=== PATIENT | male | born 1985 | race Caucasian/White ===

== ENCOUNTER 2016-11-21 00:29 | Emergency (ER) | payer OTHER ==
[~2016-11-21] VITALS: Ht 167.6 cm; Wt 82.0 kg
[2016-11-21 03:27] VITALS: BP 137/62
== END 2016-11-21 03:25 | disposition home or self-care (01) ==
LOC: ER 00:29
DX: R33.9 Retention of urine, unspecified (principal); R10.2 Pelvic and perineal pain; Z98.890 Other specified postprocedural states
CPT/HCPCS: 99283

== ENCOUNTER 2017-09-01 07:03 | Day surgery (SDC) | payer MEDICAID ==
[~2017-09-01] VITALS: Ht 167.6 cm; Wt 81.0 kg
[2017-09-01] MEDS ORDERED: BUPIVACAINE HCL 0.5% (5MG/ML) 50ML ONE (08:22)
[2017-09-01] MEDS ORDERED: SKIN ADHESIVE 0.7 GM EA TOP ONE (08:22)
[2017-09-01] MEDS ORDERED: MIDAZOLAM HCL 2 MG/2 ML VIAL ONE (09:14)
[2017-09-01] MEDS ORDERED: ROCURONIUM BROMIDE 10MG/ML VIAL 5ML IV ONE (09:14)
[2017-09-01] MEDS ORDERED: FENTANYL CITRATE/PF 50MCG/ML 2ML VIAL ONE ×2 (09:14→10:32)
[2017-09-01] MEDS ORDERED: PROPOFOL 200MG/20ML VIAL IV ONE (09:14)
[2017-09-01] MEDS ORDERED: CEFAZOLIN SODIUM 1000MG/VIAL ONE ×2 (09:17→10:24)
[2017-09-01] MEDS ORDERED: ONDANSETRON HCL 4MG/2ML VIAL ONE (09:18)
[2017-09-01] MEDS ORDERED: DEXAMETHASONE 4MG/ML 1ML VIAL ONE (09:18)
[2017-09-01] MEDS ORDERED: SODIUM CHLORIDE 0.9% 1,000 ML IV SCH (10:52)
[2017-09-01] MEDS ORDERED: FENTANYL CITRATE/PF 50MCG/ML 2ML VIAL IV PRN (11:00)
[2017-09-01] MEDS ORDERED: ATROPINE SULFATE 0.4MG/ML VIAL IV PRN (11:00)
[2017-09-01] MEDS ORDERED: ONDANSETRON HCL 4MG/2ML VIAL IV PRN (11:00)
[2017-09-01] MEDS ORDERED: MEPERIDINE HCL/PF 25MG/ML CPJ IV PRN (11:00)
[2017-09-01] MEDS: HYDROMORPHONE HCL/PF 2MG/ML CPJ IV PRN ×2 (14:29→14:39)
[2017-09-01] MEDS ORDERED: HYDROCODONE/ACETAMINOPHEN 5/325MG TABLET PO PRN (14:45)
[2017-09-01 15:20] VITALS: BP 120/48
== END 2017-09-01 16:00 | disposition home or self-care (01) ==
LOC: OR 07:03
PROVIDERS: ATTEND Surgery
DX: K40.91 Unilateral inguinal hernia, without obstruction or gangrene, recurrent (principal); K40.90 Unilateral inguinal hernia, without obstruction or gangrene, not specified as recurrent; D17.6 Benign lipomatous neoplasm of spermatic cord; Z98.890 Other specified postprocedural states
CPT/HCPCS: 49650; 49651; C1781; G0168; J0690; J1100; J1170; J2250; J2405; J3010; J3490; J7120; J2704